=== PATIENT | female | born 1995 | race Caucasian/White ===

== ENCOUNTER 2020-07-31 18:41 | Inpatient (IN) | payer BC ==
[~2020-07-31] VITALS: Ht 165.1 cm; Wt 74.1 kg
[2020-07-31] VITALS (7 sets, daily range): BP systolic 111–145; BP diastolic 67–90; PULSE 73–90; TEMP 98.1
--- NOTE | 2020-07-31 18:46 | NUR ---
1845- PT PRESENTS TO LDR COMPLAINING OF LEAKING FLUID, AMBULATORY TO ROOM LR5, CHANGED INTO GOWN. 1853- EFM X2 APPLIED. PT HAS BEEN SQUATTING NEXT TO BED LEAKING FLUID. FLUID TESTS POSITIVE FOR AMNIOTIC FLUID, IT IS CLEAR. PT DENIES VAG BLEEDING AND STATES SHE IS BELKIS REGULARLY ALL DAY AND IS FEELING BABY MOVE. PLAN OF CARE FOR LABOR DISCUSSED AND QUESTIONS ANSWERED. 1899- SVE BY THIS NURSE /-2 WITH COPIOUS AMOUNTS OF CLEAR FLUID. ADMISSION DISCUSSED 1909- NURSING ADMISSION HISTORY AND ASSESSMENT COMPLETE. DR JOHNSTON CALLED AND UPDATED CHARTED, ORDERS FOR ADMISSION. 1924- IV START TO LEFT WRIST CHARTED, BLOOD DRAWN FOR LAB. LR INFUSING FOR EPIDURAL. PT REPORTS INCREASING DISCOMFORT. 1929- RADHA NEGRETE CALLED FOR EPIDURAL PLACEMENT. 1934- PT IS HEARD SCREAMING FROM ANOTHER ROOM AND NURSE TO BEDSIDE. PT IS SQUATTING AT HEAD OF BED BEARING DOWN WITH AND MOTHER AT BEDSIDE. PT REPORTS PRESSURE AND NEED FOR BOWEL MOVEMENT. SVE BY THIS NURSE IN HANDS AND KNEES, COMPLETE AND +3. PT ENCOURAGED NOT TO PUSH, TO BREATHE THROUGH CONTRACTIONS. PT REPORTS THAT SHE CANNOT CONTROL IT. NURSERY AND ANOTHER DECHANT RN CALLED TO BEDSIDE TO ASSIST. 1937- DR JOHNSTON CALLED FOR IMMINENT DELIVERY, SHE IS ON HER WAY. 1939- PT CONTINUES TO PUSH SPONTANEOUSLY AND DELIVERS ON HANDS AND KNEES WITH THIS NURSE IN ATTENDENCE, VIABLE FEMALE, VIGOROUS, TO CARE OF NURSERY STAFF. 1941- PT ASSISTED TO LAY DOWN IN BED AND CLEAN UNDERBUTT PAD TO AWAIT DR JOHNSTON FOR DELIVERY OF PLACENTA. 1945- DR JOHNSTON AT BEDSIDE. PT POSITIONED IN FOOTPLATES. 1948- SPONTANEOUS DELIVERY OF PLACENTA, EXAMINED BY DR JOHNSTON, NO REPAIR NEEDED. PITOCIN INFUSING AT DOSE. 1954- PERICARE PROVIDED. ICEPACK TO PERINEUM. FEET DOWN FROM FOOTPLATES AND RECOVERY STARTED.
[2020-07-31 20:29] LABS: BASO # 0.1 (0.0-0.2); BASO % 0.6 % (0.0-2.0); EOS # 0.1 (0.0-0.7); EOS % 0.9 % (0-4.0); GRAN # 6.5 (1.4-6.5); GRAN % 56.3 % (42.2-75.2); HEMOGLOBIN 10.1 g/dl (12.5-16.0); LYMPH # 3.8 (1.2-3.4); LYMPH % 32.9 % (20.0-51.0); MEAN CELL VOLUME 78 fl (80.0-100.0); MEAN CORPUSCULAR HEMOGLOBIN 25 pg (27.0-31.0); MEAN CORPUSCULAR HGB CONC 32 g/dl (33.0-37.0); MEAN PLATELET VOLUME 11.7 fl (7.4-10.4); MONO % 8.9 % (1.7-9.3); PLATELET COUNT 365 K/mm3 (130-400); RED BLOOD COUNT 4.03 M/mm3 (4.10-5.30); REDCELL DISTRIBUTION WIDTH-CV 15.5 % (11.5-14.5)
[2020-07-31 20:30] LABS: HEMATOCRIT 31.3 % (37.0-47.0)
--- NOTE | 2020-07-31 20:30 | NUR ---
2029- CONSENTS SIGNED BY . 2119- IV TO SALINE LOCK, PT ASSISTED TO BATHROOM. ABLE TO VOID 700ML WITHOUT DIFFICULTY. PT PERFORMS PERICARE. CLEAN GOWN, PAD, PANTIES PROVIDED. NORMAL LOCHIA DISCUSSED AND PT VERBALIZES UNDERSTANDING. 2139- PT ASSISTED TO AMBULATE TO ROOM 208. BELONGINGS WITH PT. PT ORIENTED TO ROOM AND CALL LIGHTS. PLAN OF CARE DISCUSSED AND QUESTIONS ANSWERED. PT REQUESTS MOTRIN AND SOMETHING TO EAT.
[2020-08-01] VITALS (7 sets, daily range): BP systolic 120–135; BP diastolic 66–85; PULSE 7–93; TEMP 97.7–98.5
[2020-08-01] MEDS ORDERED: IBU800 M1 PO (09:58)
== END 2020-08-01 20:50 | disposition home or self-care (01) | DRG 807 ==
LOC: LDRO 18:41 → LDR 19:17 → OB 21:40
PROVIDERS: Student in an Organized Health Care Education/Training Program; ADMIT Obstetrics & Gynecology
PROC: 10E0XZZ Delivery of Products of Conception, External Approach (ICD-10-PCS; principal; 2020-07-31)
DX: O99.02 Anemia complicating childbirth (principal); Z37.0 Single live birth; O99.344 Other mental disorders complicating childbirth; F41.9 Anxiety disorder, unspecified; D64.9 Anemia, unspecified; Z3A.38 38 weeks gestation of pregnancy
CPT/HCPCS: J2590; J7120

== ENCOUNTER 2022-04-24 10:44 | Inpatient (IN) | payer BC ==
[~2022-04-24] VITALS: Ht 165.1 cm; Wt 72.7 kg
[~2022-04-24 10:44] MED LIST: IBU800 M1 PO
[2022-04-25] VITALS (12 sets, daily range): BP systolic 109–142; BP diastolic 58–89; PULSE 64–117; TEMP 96.5–98.3
--- NOTE | 2022-04-25 01:00 | NUR ---
0100 ADM TO LR6 WITH C/O SROM AT MIDNIGHT AND CONTRACTIONS BECOMING STRONGER AND HARDER SINCE THEN. SCHEDULED FOR A MORNING INDUCTIONS. TO BED AND EFM ON. SVE /-2 POSTERIOR CERVIX AND BOW INTACT. AMNIOTRACE DONE AND NEG. DR ROLES HERE AND REPORT GIVEN. ADM ORDERS RECEIVED. REQUEST EPID 0120 IV STARTED. BREATHING WELL WITH CONTRACTIONS.
[2022-04-25 01:34] LABS: BASO # 0.1 K/mm3 (0.0-0.2); BASO % 0.5 % (0.0-2.0); EOS # 0.1 K/mm3 (0.0-0.7); EOS % 1.2 % (0.0-4.0); GRAN # 6.6 K/mm3 (1.4-6.5); GRAN % 59.8 % (42.2-75.2); LYMPH # 3.2 K/mm3 (1.2-3.4); LYMPH % 29.6 % (20.0-51.0); MEAN CELL VOLUME 75 fl (80.0-100.0); MEAN CORPUSCULAR HGB CONC 33 g/dl (33.0-37.0); MEAN PLATELET VOLUME 10.5 fl (7.4-10.4); MONO # 0.9 K/mm3 (0.1-0.6); MONO % 8.4 % (1.7-9.3); PLATELET COUNT 324 K/mm3 (130-400); RED BLOOD COUNT 4.01 M/mm3 (4.10-5.30); REDCELL DISTRIBUTION WIDTH-CV 15.8 % (11.5-14.5)
[2022-04-25 01:40] LABS: HEMATOCRIT 30.2 % (37.0-47.0); HEMOGLOBIN 9.8 g/dl (12.5-16.0); MEAN CORPUSCULAR HEMOGLOBIN 24 pg (27-31)
--- NOTE | 2022-04-25 01:45 | NUR ---
0130: Pt maneuvered into sitting position for epidural placement. Pt back exposed for Amie Winn CRNA ease and access to place pt epidural. Risks and benefits discussed. 0134: TD administered by Amie Winn CRNA.
--- NOTE | 2022-04-25 02:00 | NUR ---
CHRISTINA, with pt consent and explanation, with a bulgy bag at 0153.
--- NOTE | 2022-04-25 03:15 | NUR ---
0310: SVE, with pt consent and explanation, /1. This nurse AROM during SVE, light meconium stained fluid noted.
--- NOTE | 2022-04-25 03:30 | NUR ---
0327: Pt in Flying Cowgirl position, in BR with PB in WR.
--- NOTE | 2022-04-25 04:15 | NUR ---
Pt repositioned in FLying Cowgirl position with PB, on BR and WL.
--- NOTE | 2022-04-25 04:35 | NUR ---
Pt starts pushing with ctx at 0427. FHR audible throughout the room. This nurse remains at pt bedside throughout whole second stage, palpating pt abdomen attempting to readjust external monitors x2.
--- NOTE | 2022-04-25 04:45 | NUR ---
0454: of viable baby girl at 0454. Baby to mothers abdomen. Cord clamped by Dr. Fine and cut by FOB. Baby care assumed by Mike Rey RN. Spontaneous delivery of intact placenta at 0458. Pitocin started at 333 mL/hr per protocol. Pt delivered intact. recovery started at 0500.
[2022-04-25] MEDS ORDERED: MOTRIN 800800 MG/TAB PO (06:06)
--- NOTE | 2022-04-25 06:30 | NUR ---
Assumed care of patient. Rests in bed, alert. Baby at warmer getting checked out by nursery nurse. Denies any needs at this time.
--- NOTE | 2022-04-25 07:12 | NUR ---
0120: IV, 18G to pt LH. LR 1 administered.
--- NOTE | 2022-04-25 07:30 | NUR ---
Ambulates to the bathroom after eating granola bar. Tolerates well, voids moderate amount of clear yellow urine. Per-care done by patient. Gown on, ice pack with harry pad on. To room 216 via wheel chair. Luther to room, patients mother at bedside. 0760 Ibuprofen 800 mg, tylenol 1000 mg given as ordered and per request.
--- NOTE | 2022-04-25 15:45 | NUR ---
Rests in bed, alert. Ibuprofen 800 mg given as ordered.
--- NOTE | 2022-04-25 18:25 | NUR ---
Care relinquished from Jojo Orellana RN. This nurse at pt bedside for introductions and discussion of POC. Questions, concerns, and needs encouraged. Pt verbalized understanding and agreement of POC with "no" questions, concerns, or needs.
--- NOTE | 2022-04-25 19:00 | NUR ---
This nurse at pt bedside for hourly rounding at 1900. Pt cuddling with baby in bed. VS and assessments obtained. Pt educated on whiteboard and packet. POC discussed with pt. Questions, concerns, and needs encouraged. Pt verbalized understanding and agreement of POC with "no" questions, concerns, or needs.
--- NOTE | 2022-04-25 20:00 | NUR ---
Pt has family visiting at the bedside during this nurse hourly rounding at 1999. Pt denies needs.
--- NOTE | 2022-04-25 21:13 | NUR ---
Pt resting in bed with pt spouse during this nurse hourly rounding at 2100. Pt denies needs at this time.
--- NOTE | 2022-04-25 22:00 | NUR ---
Pt is cuddling with baby in bed during this nurse hourly rounding at 2200.
--- NOTE | 2022-04-25 23:18 | NUR ---
Pt is attempting to breastfeed during this nurse hourly rounding at 2300. VS obtained and scheduled medication administered.
--- NOTE | 2022-04-26 01:23 | NUR ---
Pt is attempting to breastfeed during this nurse hourly round at 0100.
[2022-04-26 05:00] VITALS: BP 118/61; PULSE 83; TEMP 97.9
[2022-04-26 09:00] VITALS: BP 124/80; PULSE 90; TEMP 97.9
--- NOTE | 2022-04-26 09:25 | NUR ---
Initial visit; Patient thanked Packaging Materials Inspector for offering congratulations and God's blessings for the of her daughter. Packaging Materials Inspector thanked mom for choosing our hospital.
== END 2022-04-26 12:40 | disposition home or self-care (01) | DRG 807 ==
LOC: LDR 04-25 01:02 → OB 04-25 01:02
PROVIDERS: Obstetrics & Gynecology; ADMIT Obstetrics & Gynecology
PROC: 10E0XZZ Delivery of Products of Conception, External Approach (ICD-10-PCS; principal; 2022-04-25)
DX: O48.0 Post-term pregnancy (principal); Z37.0 Single live birth; Z3A.40 40 weeks gestation of pregnancy; O77.0 Labor and delivery complicated by meconium in amniotic fluid; O99.344 Other mental disorders complicating childbirth; F41.9 Anxiety disorder, unspecified; Z86.16 Personal history of COVID-19; O69.81X0 Labor and delivery complicated by cord around neck, without compression, not applicable or unspecified; O76 Abnormality in fetal heart rate and rhythm complicating labor and delivery; Z23 Encounter for immunization
CPT/HCPCS: J2590; J7120